=== PATIENT | female | born 1985 ===

== ENCOUNTER 2025-01-14 14:56 | Emergency (ER) | payer SELFPAY ==
[2025-01-14] MEDS: Ondansetron 4 MG Tab.DIS PO ONE (15:24)
[2025-01-14] MEDS: HYDROmorphone 1 MG/ML Syringe IM ONE (15:24)
[2025-01-14] MEDS: Tetracaine HCl/PF 0.5% 4 ML Bottle EYERT ONE (16:54)
[2025-01-14] MEDS ORDERED: Cyclopentolate 2% Ophth Soln 5 ML Bottle EYELF ONE (17:12)
[2025-01-14] MEDS: Atropine 1% Ophth Soln 5 ML Bottle ONE (17:35)
[2025-01-14] MEDS ORDERED: Atropine 1% Ophth Soln 5 ML Bottle EYELF SCH (17:45)
== END 2025-01-14 17:45 | disposition home or self-care (01) ==
LOC: DL.ED 14:56
DX: S02.2XXA Fracture of nasal bones, initial encounter for closed fracture (principal); S00.83XA Contusion of other part of head, initial encounter; W22.8XXA Striking against or struck by other objects, initial encounter
CPT/HCPCS: 70450; 70486; 96372; 99284; A9270; J1171; 99283; J3490